=== PATIENT | female | born 1950 | race Caucasian/White ===

== ENCOUNTER 2017-01-13 02:11 | Emergency (ER) | payer BC, MEDICARE ==
[2017-01-13 02:11] VITALS: BMI 35.5
--- NOTE | 2017-01-13 02:46 | C.PDOC ---
History Of Present Illness Patient is a 66 year old female who presents to the ER with a complaint of a lump on the left side of her neck that began to form 5 days ago. Denies any fever, pain, or vomiting. Chief Complaint (Nursing): Abnormal Skin Integrity History Per: Patient History/Exam Limitations: no limitations Onset/Duration Of Symptoms: Days (5) Current Symptoms Are (Timing): Still Present Location Of Injury: Left: Neck (mass) Quality Of Symptoms: denies: Painful, Itching Past Medical History Reviewed: Historical Data, Nursing Documentation, Vital Signs Vital Signs: Last Vital Signs Temp 98.4 F 01/13/17 05:40 Pulse 81 01/13/17 05:40 Resp 18 01/13/17 05:40 BP 145/86 01/13/17 05:40 Pulse Ox 96 01/13/17 17:16 - Medical History PMH: Colonic Polyps, HTN, Hypercholesterolemia Family History: States: Unknown Family Hx - Social History Hx Alcohol Use: No Hx Substance Use: No - Immunization History Hx Tetanus Toxoid Vaccination: Yes Hx Influenza Vaccination: Yes Hx Pneumococcal Vaccination: No Review Of Systems Except As Marked, All Systems Reviewed And Found Negative. Constitutional: Negative for: Fever, Chills ENT: Positive for: Other (Mass on left side of neck) Cardiovascular: Negative for: Palpitations Respiratory: Negative for: Cough, Shortness of Breath Gastrointestinal: Negative for: Nausea, Vomiting, Diarrhea Physical Exam - Physical Exam Appears: Well, Non-toxic Skin: Normal Color, Warm, Dry Head: Atraumatic, Normacephalic Eye(s): bilateral: Normal Inspection Oral Mucosa: Moist Throat: Normal Neck: Normal, Normal ROM, Other (2x3 inch mass, non tender) Chest: Symmetrical Cardiovascular: Rhythm Regular Respiratory: Normal Breath Sounds, No Rales, No Rhonchi, No Wheezing Gastrointestinal/Abdominal: Soft, No Tenderness Neurological/Psych: Oriented x3, Normal Speech, Normal Cognition ED Course And Treatment - Laboratory Results Result Diagrams: 01/13/17 03:20 01/13/17 03:20 O2 Sat by Pulse Oximetry: 96 (Room air) Pulse Ox Interpretation: Normal Progress Note: Neck soft tissue CT without contrast, blood work, and chest x- ray ordered. Disposition Counseled Patient/Family Regarding: Diagnosis - Disposition Referrals: Fabio Roberts MD [Staff Provider] - Disposition: HOME/ ROUTINE Disposition Time: 05:31 Condition: STABLE - POA Present On Arrival: None - Clinical Impression Clinical Impression: Parotid mass - Scribe Statement The provider has reviewed the documentation as recorded by the Scribe Devin Hicks All medical record entries made by the Noeibe were at my direction and personally dictated by me. I have reviewed the chart and agree that the record accurately reflects my personal performance of the history, physical exam, medical decision making, and the department course for this patient. I have also personally directed, reviewed, and agree with the discharge instructions and disposition.
[2017-01-13 03:24] LABS: BASO # 0.1 K/uL (0.0-0.2); EOS # 0.5 K/uL (0.0-0.7); EOS % 3.8 % (0.0-4.0); HEMATOCRIT 39.4 % (34.0-47.0); LYMPH # 3.1 K/uL (1.0-4.3); LYMPH % 23.2 % (20.0-40.0); MEAN CELL VOLUME 88.5 fL (81.0-99.0); MEAN CORPUSCULAR HEMOGLOBIN 28.5 pg (27.0-31.0); MEAN CORPUSCULAR HGB CONC 32.3 g/dL (33.0-37.0); MEAN PLATELET VOLUME 7.4 fL (7.2-11.7); MONO # 0.5 K/uL (0.0-0.8); MONO % 4.1 % (0.0-10.0); RED CELL DISTRIBUTION WIDTH 14.1 % (11.5-14.5); WHITE BLOOD COUNT 13.3 K/uL (4.8-10.8)
[2017-01-13 03:39] LABS: CHLORIDE 107 mmol/L (98-107); POTASSIUM 3.6 mmol/L (3.6-5.2); SODIUM 141 mmol/L (132-148)
[2017-01-13 03:41] LABS: BILIRUBIN,TOTAL 0.4 mg/dL (0.2-1.3); GFR AFRICAN-AMERICAN > 60
[2017-01-13 03:42] LABS: ALKALINE PHOSPHATASE 130 U/L (38-126); ALT/SGPT 41 U/L (9-52); AST/SGOT 26 U/L (14-36); BLOOD UREA NITROGEN 18 mg/dL (7-17); CARBON DIOXIDE 19 mmol/L (22-30); GLUCOSE,RANDOM 120 mg/dL (65-105); TOTAL PROTEIN 7.8 g/dL (6.3-8.3)
[2017-01-13 03:43] LABS: CALCIUM 8.8 mg/dl (8.6-10.4)
[2017-01-13] MEDS ORDERED: Iodixanol 320 MG/ML 100 ML BOTTLE IV ONE (04:02)
--- NOTE | 2017-01-13 05:15 | CT ---
EXAM: CT Neck Without and With Intravenous Contrast CLINICAL HISTORY: 66 years old, female; Signs and symptoms; Mass, lump, or swelling in neck; Additional info: Mass-left side of neck TECHNIQUE: Axial computed tomography images of the neck without and with intravenous contrast. This CT exam was performed using one or more of the following dose reduction techniques: automated exposure control, adjustment of the mA and/or kV according to patient size, and/or use of iterative reconstruction technique. Coronal and sagittal reformatted images were created and reviewed. CONTRAST: 100 mL of [id number] administered intravenously. EXAM DATE/TIME: Exam ordered 01/13/2017 2:43 AM COMPARISON: No relevant prior studies available. FINDINGS:No previous imaging is available. 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 Nasopharynx: Unremarkable. Oropharynx: Unremarkable. Calcifications in a prominent left palatine tonsil se2 im30 Hypopharynx: Unremarkable. Larynx: Unremarkable. Normal epiglottis. Trachea: Included portions of the lungs with severe extensive abnormalities, right more severe than left, and noting emphysematous change, probable fibrotic changes and honeycombing, further noting series 4 image 77 suggestion of soft tissue nodularity of the trachea versus secretions. Retropharyngeal space: Unremarkable. Submandibular/parotid glands: In the vicinity of the left parotid gland, there is a high attenuation finding which could represent a biopsy clip or could be related to calcification. There is a multiloculated low attenuation finding in the left parotid gland seen for example series 4 image 31, this measures approximately 5 cm cephalocaudal by 6 cm transversely by 2.7 cm anteroposterior width at least 3 major locules. Noted that the inferior extent is adjacent to the left jugular veins and carotid arteries and close attention should be paid during biopsy or other procedure. Thyroid: Unremarkable. No enlarged or calcified nodules. Bones/joints: Bony structures are without fractures. Soft tissues: Unremarkable. Vasculature: Atherosclerotic calcifications, noting that the great vessels of the arch appear patent in their visualized portions, this study is not designed as angiogram. There is some limitation to evaluation of the left vertebral artery which is favored to originate directly off the aortic arch. Lymph nodes: In the right parotid series 4 image 34 there is an approximately 11mm short axis node, with multiple additional prominent nodes associated with the right parotid. There are additional multiple small nodes associated with the bilateral parotids. Lung apices: Included portions of the lungs with severe extensive abnormalities, right more severe than left, and noting emphysematous change, probable fibrotic changes and honeycombing, further noting series 4 image 77 suggestion of soft tissue nodularity of the trachea versus secretions. IMPRESSION: 1. 6 cm x 5 cm by approximately 3 cm loculated finding associated with the left parotid gland, with previous imaging not available at this time and size is not given in the previous report, comparison to previous and correlation with interim evaluation is recommended. Multiple other bilateral lymph nodes. Comparison to the previous imaging on site and correlation with biopsy results is strongly recommended. Evaluation of the lungs is recommended, noting extensive chronic appearing changes at the bilateral lung apices, with superimposed acute infection or possibility of some interstitial spread of tumor also to be considered. Nodularity to the wall of the trachea which could represent secretions but cannot exclude tracheal nodules. Prominent left palatine tonsil with at least 2 coarse calcifications.
[2017-01-13 05:41] VITALS: BP 145/86; PULSE 81; RESP 18; TEMP 98.4
--- NOTE | 2017-01-13 08:53 | RAD ---
HISTORY: presence of cervical mass COMPARISON: No prior. TECHNIQUE: Chest PA and lateral FINDINGS: LUNGS: Diffuse increased interstitial lung markings. Mild right midlung atelectasis. Upper lobe granulomatous changes. Scattered nodularity throughout both lungs. PLEURA: No significant pleural effusion identified. No pneumothorax apparent. CARDIOVASCULAR: Normal. OSSEOUS STRUCTURES: Degenerative changes in the spine and shoulders. VISUALIZED UPPER ABDOMEN: Normal. OTHER FINDINGS: None. IMPRESSION: Diffuse increased interstitial lung markings. Mild right midlung atelectasis. Upper lobe granulomatous changes. Scattered nodularity throughout both lungs.
[2017-01-13 17:16] VITALS: O2SAT 96
== END 2017-01-13 05:46 | disposition home or self-care (01) ==
LOC: C.ER 02:11
DX: R22.1 Localized swelling, mass and lump, neck (principal)
CPT/HCPCS: 70492; 71020; 80053; 85025; 99284; Q9967

== ENCOUNTER 2017-01-17 21:50 | Emergency (ER) | payer BC, MEDICARE ==
[2017-01-17 21:50] VITALS: BMI 35.5
--- NOTE | 2017-01-17 23:06 | C.PDOC ---
History Of Present Illness 66 year old female presents to the ED for a wound check to her left neck. Patient states she was started on antibiotics by Dr. Gray 3 days ago and was recently seen in the ED for a wound check. Denies fever, chills, neck pain, or any new complaints. Time Seen by Provider: 01/17/17 22:53 Chief Complaint (Nursing): Abnormal Skin Integrity History Per: Patient History/Exam Limitations: no limitations Onset/Duration Of Symptoms: Days Current Symptoms Are (Timing): Still Present Severity: Mild Past Medical History Reviewed: Historical Data, Nursing Documentation, Vital Signs Vital Signs: Last Vital Signs Temp 98.2 F 01/17/17 23:14 Pulse 76 01/17/17 23:14 Resp 16 01/17/17 23:14 BP 154/93 H 01/17/17 23:14 Pulse Ox 98 01/17/17 23:14 - Medical History PMH: Colonic Polyps, HTN, Hypercholesterolemia Family History: States: Unknown Family Hx - Social History Hx Alcohol Use: No Hx Substance Use: No - Immunization History Hx Tetanus Toxoid Vaccination: Yes Hx Influenza Vaccination: Yes Hx Pneumococcal Vaccination: No Review Of Systems Except As Marked, All Systems Reviewed And Found Negative. Constitutional: Negative for: Fever, Chills Musculoskeletal: Negative for: Neck Pain Skin: Positive for: Other (+Wound check ) Physical Exam - Physical Exam Appears: Non-toxic, No Acute Distress Skin: Warm, Dry, Other (+2x2 cm wound to the left neck draining non-foul smelling serosanguinous fluid. No fluctuence or surrounding erythema.) Head: Atraumatic, Normacephalic Eye(s): bilateral: Normal Inspection Oral Mucosa: Moist Neck: Supple Chest: Symmetrical Respiratory: No Accessory Muscle Use Neurological/Psych: Oriented x3, Normal Speech, Normal Cognition ED Course And Treatment O2 Sat by Pulse Oximetry: 95 (room air) Pulse Ox Interpretation: Normal Medical Decision Making Medical Decision Making: non-foul smelling sero-sanguinous d/c from wound L neck on day 4 of PO KEflex 500 TID Recommended to bandage daily and continue abx to day 7 only. Disposition Doctor Will See Patient In The: Office Counseled Patient/Family Regarding: Studies Performed, Diagnosis - Disposition Referrals: Ino Gray [Staff Provider] - Disposition: HOME/ ROUTINE Disposition Time: 23:05 Condition: GOOD Additional Instructions: continue daily soap and water to clean Clean dry bandage daily Continue Keflex 500 mg PO TID to complete 7 days only. Follow-up with Dr. Gray as needed. Instructions: Chronic Wound Care (ED) - Clinical Impression Clinical Impression: Skin lesion, Wound check, abscess - Scribe Statement The provider has reviewed the documentation as recorded by the Scribe Tin Ho. Provider Attestation: All medical record entries made by the Scribe were at my direction and personally dictated by me. I have reviewed the chart and agree that the record accurately reflects my personal performance of the history, physical exam, medical decision making, and the department course for this patient. I have also personally directed, reviewed, and agree with the discharge instructions and disposition.
[2017-01-17 23:15] VITALS: BP 154/93; PULSE 76; RESP 16; TEMP 98.2
[2017-01-18 00:29] VITALS: O2SAT 95
== END 2017-01-17 23:14 | disposition home or self-care (01) ==
LOC: C.ER 21:50
DX: L02.11 Cutaneous abscess of neck (principal)

== ENCOUNTER 2017-02-20 09:47 | Day surgery (SDC) | payer MEDICARE ==
[2017-02-20 10:36] VITALS: O2SAT 100
--- NOTE | 2017-02-20 11:17 | CP.SDSHP ---
Same Day Surgery H & P - History Proposed Procedure: US guided FNA of left parotid mass Pre-Op Diagnosis: Left parotid mass - Allergies Allergies: Allergies No Known Allergies Allergy (Verified 02/13/16 08:57) - Physical Exam Vital Signs: Vital Signs 02/20/17 10:19 Temperature 97.2 F L Pulse Rate 66 Respiratory 20 Rate Blood Pressure 159/86 H O2 Sat by Pulse 100 Oximetry Mental Status: Alert & Oriented x3 Neuro: WNL Heart: WNL - {Optional Preform as Required} ENT: WNL - Impression Impression: Pt s/p left parotid cystic mass resection with complex fluid collection near surgical bed. PLAN US guided aspiration. Pt. Evaluated Today:Candidate for Anesthesia & Procedure: No Short Stay Discharge - Short Stay Discharge Admitting Diagnosis/Reason for Visit: PAROTID MASS Disposition: HOME/ ROUTINE
--- NOTE | 2017-02-20 11:20 | PCM.SURG1 ---
Surgeon's Initial Post Op Note - Surgeon's Notes Surgeon: Olu Larson MD Truck Guard: NONE Type of Anesthesia: Local Pre-Operative Diagnosis: Parotid mass Operative Findings: Large complex left parotid collection. Post-Operative Diagnosis: Parotid mass Operation Performed: US guided aspiration of left parotid collection. Specimen/Specimens Removed: 9 cc of purulent drainage. Estimated Blood Loss: EBL {In ML}: 0 Drains Used: No Drains Post-Op Condition: Good Date of Surgery/Procedure: 02/20/17 Time of Surgery/Procedure: 11:15
[2017-02-20 11:43] VITALS: BP 117/53; PULSE 76; RESP 18; TEMP 97
--- NOTE | 2017-02-20 14:04 | US ---
PROCEDURE: DATE OF PROCEDURE: 02/20/2017 PROCEDURE: 1. Ultrasound-guided FNA of a left parotid mass, CPT 22455 2. Ultrasound guidance for procedure, CPT 94957 Medications: 3cc 1 percent lidocaine HISTORY: Status post left parotid cyst resection with complex fluid collection deep to the surgical scar TECHNIQUE: Following informed consent, the left parotid area was marked. Procedure time out was called and the parotid area was prepped and draped in the usual sterile manner. A limited ultrasound was performed of the left parotid which shows a complex cystic mass deep to the surgical incision measuring 6 centimeters. Ultrasound-guided FNA was performed. Under ultrasound guidance, a 25 gauge needle was advanced into the nodule. 9 cubic centimeters of purulent drainage was aspirated and sent for histology along with culture and sensitivity. IMPRESSION: Ultrasound-guided aspiration of cystic mass left parotid space. 9 cubic centimeters of purulent drainage was aspirated.
== END 2017-02-20 11:51 | disposition home or self-care (01) ==
LOC: C.SPRAD 09:47
PROVIDERS: ATTEND Radiology Vascular & Interventional Radiology
DX: K11.8 Other diseases of salivary glands (principal)

== ENCOUNTER 2018-02-01 23:53 | Observation (INO) | payer MEDICARE ==
[2018-02-01 23:53] VITALS: BMI 35.5
[2018-02-02 00:52] LABS: BASO # 0.1 K/uL (0.0-0.2); BASO % 0.8 % (0.0-2.0); EOS # 0.6 K/uL (0.0-0.7); EOS % 4.2 % (0.0-4.0); HEMOGLOBIN 12.4 g/dL (11.0-16.0); LYMPH % 29.2 % (20.0-40.0); MEAN CELL VOLUME 86.5 fL (81.0-99.0); MEAN CORPUSCULAR HEMOGLOBIN 29.4 pg (27.0-31.0); MEAN PLATELET VOLUME 7.5 fL (7.2-11.7); MONO # 0.8 K/uL (0.0-0.8); MONO % 6.1 % (0.0-10.0); NEUT # 8.2 K/uL (1.8-7.0); NEUT % 59.7 % (50.0-75.0); RBC 4.23 Mil/uL (3.80-5.20); WHITE BLOOD COUNT 13.6 K/uL (4.8-10.8)
--- NOTE | 2018-02-02 00:53 | C.PDOC ---
History Of Present Illness 67yo female with history of hypertension, diabetes, hyperlipidemia, current smoker, presents to ED for evaluation of a sudden onset sub-sternal chest pain, pressure like and radiating to her neck, jaw and down her left arm. 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 She denies any pleuritic pain and states she has no history of CAD; last stress test was 6 years ago. Time Seen by Provider: 02/02/18 00:20 Chief Complaint (Nursing): Chest Pain History Per: Patient History/Exam Limitations: no limitations Onset/Duration Of Symptoms: Hrs Current Symptoms Are (Timing): Still Present Severity: Moderate Pain Scale Rating Of: 4 Quality: Pressure Past Medical History Reviewed: Historical Data, Nursing Documentation, Vital Signs Vital Signs: Last Vital Signs Temp 98.4 F 02/02/18 02:10 Pulse 96 H 02/02/18 03:15 Resp 20 02/02/18 02:10 BP 144/81 02/02/18 02:10 Pulse Ox 97 02/02/18 02:48 - Medical History PMH: Colonic Polyps, HTN, Hypercholesterolemia Denies: Chronic Kidney Disease Surgical History: No Surg Hx Family History: States: Unknown Family Hx - Social History Hx Alcohol Use: No Hx Substance Use: No - Immunization History Hx Tetanus Toxoid Vaccination: No Hx Influenza Vaccination: Yes Hx Pneumococcal Vaccination: Yes Review Of Systems Except As Marked, All Systems Reviewed And Found Negative. Constitutional: Negative for: Fever, Chills Cardiovascular: Positive for: Chest Pain Respiratory: Negative for: Shortness of Breath Physical Exam - Physical Exam Appears: Non-toxic Skin: Normal Color, Warm, Dry Head: Atraumatic, Normacephalic Eye(s): bilateral: Normal Inspection Neck: Normal ROM, Supple Chest: Symmetrical Cardiovascular: Rhythm Regular (normal S1/S2) Respiratory: Normal Breath Sounds, No Wheezing Gastrointestinal/Abdominal: Normal Exam Back: Normal Inspection Extremity: Normal ROM, No Deformity, No Swelling Neurological/Psych: Oriented x3 ED Course And Treatment - Laboratory Results Result Diagrams: 02/02/18 00:40 02/02/18 00:40 ECG: Interpreted By Me, Viewed By Me ECG Rhythm: Sinus Rhythm ECG Interpretation: Normal Interpretation Of ECG: Normal intervals, no ST/T wave changes, no ectopy Rate From EC O2 Sat by Pulse Oximetry: 99 (RA) Pulse Ox Interpretation: Normal Medical Decision Making Medical Decision Making: Impression: Typical chest pain with multiple risk factors Routine workup requiring admission Plan: -- Labs -- EKG -- CXR -- ASA 162mg PO -- NTG 0.4mg SL -- Urinalysis Disposition - Disposition Disposition: HOSPITALIZED Disposition Time: 04:00 Condition: GOOD - Clinical Impression Clinical Impression: Chest pain - Scribe Statement The provider has reviewed the documentation as recorded by the Scribe (Alpa Smith) Provider Attestation: All medical record entries made by the Scribe were at my direction and personally dictated by me. I have reviewed the chart and agree that the record accurately reflects my personal performance of the history, physical exam, medical decision making, and the department course for this patient. I have also personally directed, reviewed, and agree with the discharge instructions and disposition.
--- NOTE | 2018-02-02 00:56 | C.PDOC ---
Chief Complaint (Nursing): Chest Pain Past Medical History Vital Signs: Last Vital Signs Temp 97.9 F 02/02/18 00:10 Pulse 89 02/02/18 00:49 Resp 19 02/02/18 00:49 BP 134/76 02/02/18 00:49 Pulse Ox 95 02/02/18 00:49 - Medical History PMH: Colonic Polyps, HTN, Hypercholesterolemia Denies: Chronic Kidney Disease Family History: States: Unknown Family Hx - Social History Hx Alcohol Use: No Hx Substance Use: No - Immunization History Hx Tetanus Toxoid Vaccination: No Hx Influenza Vaccination: Yes Hx Pneumococcal Vaccination: Yes ED Course And Treatment - Laboratory Results Result Diagrams: 02/02/18 00:40 O2 Sat by Pulse Oximetry: 95 Disposition - Disposition
[2018-02-02 01:00] LABS: ALBUMIN 3.7 g/dL (3.5-5.0); ALT/SGPT 13 U/L (9-52); AST/SGOT 20 U/L (14-36); BLOOD UREA NITROGEN 22 mg/dL (7-17); CALCIUM 8.6 mg/dl (8.6-10.4); GFR AFRICAN-AMERICAN > 60; GFR NON-AFRICAN AMERICAN > 60
[2018-02-02 01:13] LABS: B-TYPE NATRIURETIC PEPTIDE 52.7 pg/mL (0-900)
--- NOTE | 2018-02-02 02:07 | CP.PCM.HP ---
<ShayanParesh parmar - Last Filed: 02/02/18 03:36> History of Present Illness - History of Present Illness History of Present Illness: CC: Chest pain x6 hours PMD: Dr. Gray Advanced Directive: Full Code This patient is a 67yo F w/ a PMhx of DM on glipizide, HTN, and HLD who is coming to the ED with chest pain since 10pm tonight. The patient was sitting watching TV when the chest pain started; She states the chest pain is centrally located, moving to both jaws and down her left arm associated with nausea and diaphoresis. Denies any vomiting or feelings of impending doom. She has never had chest pain like this before which is what prompted her to come into the hospital. She denies shortness of breath. She states she had a stress test 6 yeas ago which was normal, and saw a parquet floor layer's helper "many years ago" with reportedly normal results. She currently denies chest pain, after she was given nitro twice which alleviated her pain. She denies fevers/chills, SWANSON, CP, SOB, abdominal pain, N/V/D, dysuria/freq/urg or lower extremity pain/swelling PMhx: HTN, HLD, DM type 2 Meds: Glipizide (unknown dose), Simvastatin 20mg, Valsartan/HCTz combo, baby aspirin Allergies: denies Surgeries: partoid gland cyst removal Social: current smoker, states she is trying to quit and is down to 4 cigarettes a day, denies EtOH or other illicit drug use, independent in all ADL and IADL. Present on Admission - Present on Admission Any Indicators Present on Admission: Yes History of DVT/PE: No History of Uncontrolled Diabetes: Yes Urinary Catheter: No Decubitus Ulcer Present: No Past Patient History - Past Medical History & Family History Past Medical History?: Yes - Past Social History Smoking Status: Light Smoker < 10 Cigarettes Daily - CARDIAC Hx Hypercholesterolemia: Yes Hx Hypertension: Yes - PULMONARY Hx Respiratory Disorders: No - NEUROLOGICAL Hx Neurological Disorder: No - HEENT Hx HEENT Problems: Yes Other/Comment: HX: PAROTID MASS - RENAL Hx Chronic Kidney Disease: No - ENDOCRINE/METABOLIC Hx Endocrine Disorders: No - HEMATOLOGICAL/ONCOLOGICAL Hx Blood Disorders: No - INTEGUMENTARY Hx Dermatological Problems: No - MUSCULOSKELETAL/RHEUMATOLOGICAL Hx Musculoskeletal Disorders: No - GASTROINTESTINAL Hx Gastrointestinal Disorders: Yes - GENITOURINARY/GYNECOLOGICAL Hx Genitourinary Disorders: No - PSYCHIATRIC Hx Substance Use: No - SURGICAL HISTORY Hx Surgeries: Yes Hx Hysterectomy: Yes Hx Tubal Ligation: Yes Other/Comment: 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 Negative for: Lymphadenopathy, Thyromegaly - Respiratory Exam Respiratory Exam: Clear to Auscultation Bilateral, NORMAL BREATHING PATTERN. absent: Rales, Rhonchi, Wheezes - Cardiovascular Exam Cardiovascular Exam: REGULAR RHYTHM, +S1, +S2. absent: Clicks, Diastolic murmur , Gallop, Systolic Murmur - GI/Abdominal Exam GI & Abdominal Exam: Normal Bowel Sounds, Soft. absent: Tenderness - Extremities Exam Extremities exam: Positive for: full ROM. Negative for: calf tenderness, pedal edema - Back Exam Back exam: NORMAL INSPECTION. absent: CVA tenderness (L), CVA tenderness (R) - Neurological Exam Neurological exam: Alert, CN II-XII Intact, Oriented x3 - Psychiatric Exam Psychiatric exam: Normal Affect - Skin Skin Exam: Warm Results - Vital Signs Recent Vital Signs: Last Vital Signs Temp 97.9 F 02/02/18 00:10 Pulse 89 02/02/18 01:53 Resp 17 02/02/18 01:53 BP 143/77 02/02/18 01:53 Pulse Ox 96 02/02/18 01:53 - Labs Result Diagrams: 02/02/18 00:40 02/02/18 00:40 Labs: Laboratory Results - last 24 hr 02/02/18 02/02/18 02/02/18 00:08 00:40 00:40 WBC 13.6 H RBC 4.23 Hgb 12.4 Hct 36.6 MCV 86.5 D MCH 29.4 MCHC 34.0 RDW 14.0 Plt Count 335 MPV 7.5 Neut % (Auto) 59.7 Lymph % (Auto) 29.2 Emmet % (Auto) 6.1 Eos % (Auto) 4.2 H Baso % (Auto) 0.8 Neut # (Auto) 8.2 H Lymph # (Auto) 4.0 Emmet # (Auto) 0.8 Eos # (Auto) 0.6 Baso # (Auto) 0.1 Sodium 141 Potassium 3.6 Chloride 105 Carbon Dioxide 25 Anion Gap 15 BUN 22 H Creatinine 0.7 Est GFR ( Amer) > 60 Est GFR (Non-Af Amer) > 60 POC Glucose (mg/dL) 148 H Random Glucose 145 H Calcium 8.6 Total Bilirubin 0.3 AST 20 ALT 13 Alkaline Phosphatase 124 Troponin I < 0.0120 NT-Pro-B Natriuret Pep 52.7 Total Protein 7.5 Albumin 3.7 Globulin 3.7 Albumin/Globulin Ratio 1.0 Assessment & Plan - Assessment and Plan (Free Text) Assessment: 67yo F admitted for chest pain with multiple risk factors (HTN, DM, HLD) Chest Pain -initial FRANKI negative, EKG was NSR with nonspecific ST/T wave changes -f/u repeat EKG w/ FRANKI -Chest X-ray shows emphasatamous changes; low dose chest CT from last year shows similar findings -aspirin 81mg daily, c/w home HTN meds (arb/hctz) -f/u echo; BNP normal at 52.7 -telemetry -cardiology consult; Dr. Jalloh; appreciate recs -NPO except for meds Leukocytosis -will f/u morning CBC -patient is afebrile with normal vital signs DM -f/u hba1c -will hold all diabetes medicine as per Dr. Clark HLD -f/u lipid panel -will change to crestor 20mg HTN -c/w home meds ARB/HCtz -will hold beta wilson as per Dr. Clark Proph -Lovenox 40mg SC -GI prophylaxis not indicated Case discussed and seen with Dr. Clark Decision To Admit - Pt Status Changed To: Hospital Disposition Of: Observation - . Bed Request Type: Telemetry Admitting Physician: Abisai Clark <Abisai Clark - Last Filed: 02/02/18 07:34> Results - Vital Signs Recent Vital Signs: Last Vital Signs Temp 98.4 F 02/02/18 02:10 Pulse 96 H 02/02/18 03:15 Resp 20 02/02/18 02:10 BP 144/81 02/02/18 02:10 Pulse Ox 99 02/02/18 04:01 - Labs Result Diagrams: 02/02/18 00:40 02/02/18 00:40 Labs: Laboratory Results - last 24 hr 02/02/18 02/02/18 02/02/18 00:08 00:40 00:40 WBC 13.6 H RBC 4.23 Hgb 12.4 Hct 36.6 MCV 86.5 D MCH 29.4 MCHC 34.0 RDW 14.0 Plt Count 335 MPV 7.5 Neut % (Auto) 59.7 Lymph % (Auto) 29.2 Emmet % (Auto) 6.1 Eos % (Auto) 4.2 H Baso % (Auto) 0.8 Neut # (Auto) 8.2 H Lymph # (Auto) 4.0 Emmet # (Auto) 0.8 Eos # (Auto) 0.6 Baso # (Auto) 0.1 Sodium 141 Potassium 3.6 Chloride 105 Carbon Dioxide 25 Anion Gap 15 BUN 22 H Creatinine 0.7 Est GFR ( Amer) > 60 Est GFR (Non-Af Amer) > 60 POC Glucose (mg/dL) 148 H Random Glucose 145 H Calcium 8.6 Total Bilirubin 0.3 AST 20 ALT 13 Alkaline Phosphatase 124 Total Creatine Kinase CK-MB (Mass) Troponin I < 0.0120 NT-Pro-B Natriuret Pep 52.7 Total Protein 7.5 Albumin 3.7 Globulin 3.7 Albumin/Globulin Ratio 1.0 Triglycerides Cholesterol LDL Cholesterol Direct HDL Cholesterol TSH 3rd Generation Urine Color Urine Clarity Urine pH Ur Specific Oaks Urine Protein Urine Glucose (UA) Urine Ketones Urine Blood Urine Nitrate Urine Bilirubin Urine Urobilinogen Ur Leukocyte Esterase Urine WBC (Auto) Urine RBC (Auto) Ur Squamous Epith Cells 02/02/18 02/02/18 02/02/18 03:54 04:37 06:36 WBC RBC Hgb Hct MCV MCH MCHC RDW Plt Count MPV Neut % (Auto) Lymph % (Auto) Emmet % (Auto) Eos % (Auto) Baso % (Auto) Neut # (Auto) Lymph # (Auto) Emmet # (Auto) Eos # (Auto) Baso # (Auto) Sodium Potassium Chloride Carbon Dioxide Anion Gap BUN Creatinine Est GFR ( Amer) Est GFR (Non-Af Amer) POC Glucose (mg/dL) 115 H Random Glucose Calcium Total Bilirubin AST ALT Alkaline Phosphatase Total Creatine Kinase 73 CK-MB (Mass) 0.55 Troponin I 0.0670 NT-Pro-B Natriuret Pep Total Protein Albumin Globulin Albumin/Globulin Ratio Triglycerides 317 H Cholesterol 175 LDL Cholesterol Direct 113 HDL Cholesterol 42 TSH 3rd Generation 0.85 Urine Color Yellow Urine Clarity Clear Urine pH 5.0 Ur Specific Oaks 1.024 Urine Protein Negative Urine Glucose (UA) Normal Urine Ketones Negative Urine Blood Negative Urine Nitrate Negative Urine Bilirubin Negative Urine Urobilinogen Normal Ur Leukocyte Esterase Neg Urine WBC (Auto) 2 Urine RBC (Auto) 5 H Ur Squamous Epith Cells 3 Attending/Attestation - Attestation I have personally seen and examined this patient.: Yes I have fully participated in the care of the patient.: Yes I have reviewed all pertinent clinical information: Yes Notes (Text): 02/02/18 07:30 Symptoms of CP, left arm discomfort, at rest while watching tv resolved, by the time patient reached hospital en route received also nitro and asa x2, with normal no acute signs of ischemia in the EKG. Patient has h/o dm, htn, tobacco abuse. Plan Serial troponin in hosptial Carb consistent diet Counselled about tobacco cessation.
[2018-02-02 04:08] LABS: SQUAMOUS EPITHIAL 3 /hpf (0-5); URINE BILIRUBIN NEGATIVE (NEGATIVE); URINE BLOOD NEGATIVE (NEGATIVE); URINE CLARITY Clear (Clear); URINE COLOR Yellow (YELLOW); URINE GLUCOSE (UA) NORMAL (Normal); URINE LEUKOCYTE ESTERASE NEG Leu/uL (Negative); URINE PROTEIN NEGATIVE (NEGATIVE); URINE UROBILINOGEN NORMAL mg/dL (0.2-1.0)
[2018-02-02 05:01] LABS: CK-MB 0.55 ng/mL (0.0-3.38); TROPONIN I 0.067 ng/mL (0.00-0.120)
[2018-02-02] MEDS ORDERED: Aluminum Hydroxide/Magnesium Hydroxide Susp (30 mL) PO ONE (05:09)
[2018-02-02] MEDS ORDERED: (Novolog) Insulin Aspart, Recombinant 100 u/ml 10 ml vial SC SCH (07:30)
--- NOTE | 2018-02-02 07:57 | RAD ---
Chest x-ray single frontal view History: Chest pain. Comparison: 01/13/2017 Findings: Diffuse increased interstitial lung markings which may represent superimposed acute edema and or infiltrate on chronic fibrotic changes. Clinical correlation. Biapical pleural thickening with upper lobe granulomatous changes. Elevated right hemidiaphragm. Right hilar prominence. Degenerative changes in the spine and shoulders. Impression: Diffuse increased interstitial lung markings which may represent superimposed acute edema and or infiltrate on chronic fibrotic changes. Clinical correlation. Biapical pleural thickening with upper lobe granulomatous changes. Elevated right hemidiaphragm. Right hilar prominence.
[2018-02-02] MEDS ORDERED: HYDROCHLOROTHIAZIDE PO SCH (10:00)
[2018-02-02] MEDS ORDERED: VALSARTAN PO SCH (10:00)
[2018-02-02] MEDS: Enoxaparin 40 mg Syringe SC SCH (10:01)
[2018-02-02] MEDS: (Novolin R) Insulin Human Regular 100 units/ml vial SC SCH ×3 (12:00→22:16)
--- NOTE | 2018-02-02 15:07 | CP.PCM.PN ---
Subjective - Date & Time of Evaluation Date of Evaluation: 02/02/18 Time of Evaluation: 07:00 - Subjective Subjective: PGY1- Medicine Note Patient seen and examined at bedside and in no acute distress. Patient says her chest pain has completely resolved and she is eager to go home. Patient has some epigastric pain which she said started around 4 am and she rated 9/10, but has subsided to 2/10. Patient has not had a bowel movement since Friday. Patient denies any shortness of breath, nausea, or vomiting. Objective - Vital Signs/Intake and Output Vital Signs (last 24 hours): Temp Pulse Resp BP Pulse Ox 98.2 F 72 18 163/94 H 96 02/02/18 07:20 02/02/18 12:00 02/02/18 07:20 02/02/18 07:20 02/02/18 07:20 Intake and Output: 02/02/18 02/02/18 06:59 18:59 Intake Total 240 Balance 240 - Medications Medications: Current Medications Aspirin (Ecotrin) 81 mg PO [facility]ILY [facility] Last Admin: 02/02/18 10:02 Dose: 81 mg Enoxaparin Sodium (Lovenox) 40 mg SC [facility] Last Admin: 02/02/18 10:01 Dose: 40 mg Home Med (Valsartan/Hydrochlorothiazide [Valsartan-Hctz 160-25 Mg Tab]) 1 tab PO DAILY [facility] Last Admin: 02/02/18 10:05 Dose: Not Given Insulin Human Regular (Novolin R) 0 unit SC [facility] PRN Reason: Protocol Last Admin: 02/02/18 12:00 Dose: Not Given Rosuvastatin Calcium (Crestor) 20 mg PO [facility] - Labs Labs: 02/02/18 00:40 02/02/18 00:40 - Constitutional Appears: Non-toxic, No Acute Distress - Head Exam Head Exam: ATRAUMATIC, NORMAL INSPECTION, NORMOCEPHALIC - Eye Exam Eye Exam: EOMI, Normal appearance Pupil Exam: NORMAL ACCOMODATION, PERRL - ENT Exam ENT Exam: Mucous Membranes Moist - Respiratory Exam Respiratory Exam: Clear to Ausculation Bilateral, NORMAL BREATHING PATTERN - Cardiovascular Exam Cardiovascular Exam: REGULAR RHYTHM, RRR, +S1, +S2 - GI/Abdominal Exam GI & Abdominal Exam: Soft, Normal Bowel Sounds. absent: Tenderness - Extremities Exam Extremities Exam: Normal Inspection - Back Exam Back Exam: NORMAL INSPECTION - Neurological Exam Neurological Exam: Alert, Awake, Oriented x3 - Psychiatric Exam Psychiatric exam: Normal Affect, Normal Mood - Skin Skin Exam: Intact, Normal Color, Warm Assessment and Plan - Assessment and Plan (Free Text) Assessment: Chest Pain -initial FRANKI negative, EKG was NSR with nonspecific ST/T wave changes -repeat Troponin I .0670 -Chest X-ray shows emphasatamous changes; low dose chest CT from last year shows similar findings -aspirin 81mg daily, c/w home HTN meds (arb/hctz) -f/u echo; BNP normal at 52.7 -telemetry -cardiology consult; Dr. Jalloh; appreciate recs -NPO except for meds after midnight -patient to go for cardiac cath in am with Dr. Jalloh Leukocytosis -will f/u morning CBC -patient is afebrile with normal vital signs Constipation -Colace 100mg po TID -prune juice -monitor for BM DM -hba1c- 6.6 -insulin sliding scale - low -accuchecks q6h -hypoglycemia protocol HLD -lipid panel: Triglycerides 317, Cholesterol 175, LDL 113, HDL 42 -will change to crestor 20mg HTN -c/w home meds ARB/HCtz -will hold beta wilson as per Dr. Clark Proph -Lovenox 40mg SC -GI prophylaxis not indicated
[2018-02-02 16:50] LABS: INR 1.1
[2018-02-02 17:04] LABS: CK-MB 0.81 ng/mL (0.0-3.38); TROPONIN I 0.045 ng/mL (0.00-0.120)
--- NOTE | 2018-02-02 18:05 | CARD ---
APPROVED REPORT EXAM: Two-dimensional and M-mode echocardiogram with Doppler and color Doppler. Other Information Quality : AverageRhythm : NSR INDICATION Chest Pain M-Mode DIMENSIONS RVDd1.53 (2.1-3.2cm)Left Atrium (MM)3.58 (2.5-4.0cm) IVSd1.07 (0.7-1.1cm)Aortic Root2.73 (2.2-3.7cm) LVDd5.01 (4.0-5.6cm)Aortic Cusp Exc.1.79 (1.5-2.0cm) PWd1.14 (0.7-1.1cm)FS (%) 38 % LVDs3.12 (2.0-3.8cm)LVEF (%)67 (>50%) Aortic Valve AoV Peak Kvulpksw465.8cm/Alayna Peak GR.7mmHg Mitral Valve MV E Isosyzkt18.6cm/sMV A Kixmnnil443.8cm/sE/A ratio0.5 TDI E/Lateral E'0.0E/Medial E'0.0 Tricuspid Valve TR Peak [id number]/sTR Peak Gr.[id number] LEFT VENTRICLE There is normal left ventricular wall thickness. The left ventricular function is normal. The left ventricular ejection fraction is within the normal range. There is normal LV segmental wall motion. Transmitral Doppler flow pattern is abnormal. RIGHT VENTRICLE The right ventricle is normal size. ATRIA The left atrium size is normal. The right atrium size is normal. AORTIC VALVE The aortic valve is normal in structure. MITRAL VALVE Mitral regurgitation is trace. TRICUSPID VALVE There is trace to mild tricuspid regurgitation. <Conclusion> Normal LV systolic function. Diastolic dysfunction. Normal chambe rsize. Trace MR. Mild TR.
--- NOTE | 2018-02-03 00:07 | CP.PCM.CON ---
History of Present Illness - History of Present Illness History of Present Illness: Reason for consultation: accelerating angina HPI: This patient is a 67yo F w/ a PMhx of DM on glipizide, HTN, and HLD who is coming to the ED with chest pain since 10pm tonight. The patient was sitting watching TV when the chest pain started; She states the chest pain is centrally located, moving to both jaws and down her left arm associated with nausea and diaphoresis. Denies any vomiting or feelings of impending doom. She has never had chest pain like this before which is what prompted her to come into the hospital. She denies shortness of breath. She states she had a stress test 6 yeas ago which was normal, and saw a optical engineer "many years ago" with reportedly normal results. She currently denies chest pain, after she was given nitro twice which alleviated her pain. She denies fevers/chills, SWANSON, CP, SOB, abdominal pain, N/V/D, dysuria/freq/urg or lower extremity pain/swelling. Trops positive x 2 EKG - NSR Review of Systems - Constitutional Constitutional: absent: As Per HPI, Anorexia, Chills, Daytime Sleepiness, Excessive Sweating, Fatigue, Fever, Frequent Falls, Headache, Increased Appetite , Lethargy, Malaise, Night Sweats, Snoring, Sleep Apnea, Weight Gain, Weight Loss, Weakness, Other - EENT Eyes: absent: As Per HPI, Blind Spots, Blurred Vision, Change in Vision, Decreased Night Vision, Diplopia, Discharge, Dry Eye, Exophthalmos, Floaters, Irritation, Itchy Eyes, Loss of Peripheral Vision, Pain, Photophobia, Requires Corrective Lenses, Sees Flashes, Spots in Vision, Tunnel Vision, Other Visual Disturbances, Loss of Vision, Other Ears: absent: As Per HPI, Decreased Hearing, Ear Discharge, Ear Pain, Tinnitus, Abnormal Hearing, Disequilibrium, Dizziness, Other Nose/Mouth/Throat: absent: As Per HPI, Epistaxis, Nasal Congestion, Nasal Discharge, Nasal Obstruction, Nasal Trauma, Nose Pain, Post Nasal Drip, Sinus Pain, Sinus Pressure, Bleeding Gums, Change in Voice, Dental Pain, Dry Mouth, Dysphagia, Halitosis, Hoarsness, Lip Swelling, Mouth Lesions, Mouth Pain, Odynophagia, Sore Throat, Throat Swelling, Tongue Swelling, Facial Pain, Neck Pain, Neck Mass, Other - Cardiovascular Cardiovascular: Chest Pain at Rest. absent: Leg Edema, Pedal Edema - Respiratory Respiratory: Dyspnea on Exertion - Gastrointestinal Gastrointestinal: absent: As Per HPI, Abdominal Pain, Belching, Bloating, Change in Bowel Habits, Change in Stool Character, Coffee Ground Emesis, Constipation, Cramping, Diarrhea, Dyspepsia, Dysphagia, Early Satiety, Excessive Flatus, Fecal Incontinence, Heartburn, Hematemesis, Hematochezia, Loose Stools, Melena, Nausea, Odynophagia, Temesmus, Vomiting, Other - Genitourinary Genitourinary: absent: Hematuria, Pyuria - Musculoskeletal Musculoskeletal: Neck Pain. absent: Abnormal Gait, Muscle Weakness - Neurological Neurological: absent: Abnormal Gait, Dizziness, Focal Weakness, Frequent Falls, Headaches Past Patient History - Past Medical History & Family History Past Medical History?: Yes - Past Social History Smoking Status: Light Smoker < 10 Cigarettes Daily - CARDIAC Hx Hypercholesterolemia: Yes Hx Hypertension: Yes - PULMONARY Hx Respiratory Disorders: No - NEUROLOGICAL Hx Neurological Disorder: No - HEENT Hx HEENT Problems: Yes Other/Comment: HX: PAROTID MASS - RENAL Hx Chronic Kidney Disease: No - ENDOCRINE/METABOLIC Hx Endocrine Disorders: No - HEMATOLOGICAL/ONCOLOGICAL Hx Blood Disorders: No - INTEGUMENTARY Hx Dermatological Problems: No - MUSCULOSKELETAL/RHEUMATOLOGICAL Hx Musculoskeletal Disorders: No - GASTROINTESTINAL Hx Gastrointestinal Disorders: Yes - GENITOURINARY/GYNECOLOGICAL Hx Genitourinary Disorders: No - PSYCHIATRIC Hx Substance Use: No - SURGICAL HISTORY Hx Surgeries: Yes Hx Hysterectomy: Yes Hx Tubal Ligation: Yes Other/Comment: 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 - ANESTHESIA Hx Anesthesia: Yes Hx Anesthesia Reactions: No Hx Malignant Hyperthermia: No Meds Allergies/Adverse Reactions: Allergies Allergy/AdvReac Type Severity Reaction Status Date / Time No Known Allergies Allergy Verified 02/02/18 00:17 - Medications Medications: Current Medications Aspirin (Ecotrin) 81 mg PO DAILY [facility] Last Admin: 02/02/18 10:02 Dose: 81 mg Docusate Sodium (Colace) 100 mg PO TID [facility] Last Admin: 02/02/18 17:40 Dose: 100 mg Enoxaparin Sodium (Lovenox) 40 mg SC DAILY [facility] Last Admin: 02/02/18 10:01 Dose: 40 mg Hydrochlorothiazide (Hydrodiuril) 25 mg PO DAILY [facility] Insulin Human Regular (Novolin R) 0 unit SC ACHS [facility] PRN Reason: Protocol Last Admin: 02/02/18 22:16 Dose: Not Given Losartan Potassium (Cozaar) 100 mg PO DAILY [facility] Rosuvastatin Calcium (Crestor) 20 mg PO HS [facility] Last Admin: 02/02/18 21:37 Dose: 20 mg Physical Exam - Constitutional Appears: Non-toxic - Head Exam Head Exam: NORMAL INSPECTION - Eye Exam Eye Exam: Scleral icterus - ENT Exam ENT Exam: Mucous Membranes Moist - Neck Exam Neck exam: Positive for: Full Rom. Negative for: Lymphadenopathy - Respiratory Exam Respiratory Exam: Decreased Breath Sounds, NORMAL BREATHING PATTERN - Cardiovascular Exam Cardiovascular Exam: REGULAR RHYTHM - GI/Abdominal Exam GI & Abdominal Exam: Normal Bowel Sounds, Soft. absent: Tenderness - Extremities Exam Extremities exam: Negative for: calf tenderness, pedal edema - Neurological Exam Neurological exam: Alert, Oriented x3 Results - Vital Signs Recent Vital Signs: Last Vital Signs Temp 98 F 02/02/18 15:52 Pulse 75 02/02/18 16:00 Resp 20 02/02/18 15:52 BP 166/83 H 02/02/18 15:52 Pulse Ox 97 02/02/18 15:52 - Labs Result Diagrams: 02/02/18 00:40 02/02/18 00:40 Labs: Laboratory Results - last 24 hr 02/02/18 02/02/18 02/02/18 00:08 00:40 00:40 WBC 13.6 H RBC 4.23 Hgb 12.4 Hct 36.6 MCV 86.5 D MCH 29.4 MCHC 34.0 RDW 14.0 Plt Count 335 MPV 7.5 Neut % (Auto) 59.7 Lymph % (Auto) 29.2 [place] % (Auto) 6.1 Eos % (Auto) 4.2 H Baso % (Auto) 0.8 Neut # (Auto) 8.2 H Lymph # (Auto) 4.0 [place] # (Auto) 0.8 Eos # (Auto) 0.6 Baso # (Auto) 0.1 PT INR APTT Sodium 141 Potassium 3.6 Chloride 105 Carbon Dioxide 25 Anion Gap 15 BUN 22 H Creatinine 0.7 Est GFR ( Amer) > 60 Est GFR (Non-Af Amer) > 60 POC Glucose (mg/dL) 148 H Random Glucose 145 H Hemoglobin A1c Calcium 8.6 Total Bilirubin 0.3 AST 20 ALT 13 Alkaline Phosphatase 124 Total Creatine Kinase CK-MB (Mass) Troponin I < 0.0120 NT-Pro-B Natriuret Pep 52.7 Total Protein 7.5 Albumin 3.7 Globulin 3.7 Albumin/Globulin Ratio 1.0 Triglycerides Cholesterol LDL Cholesterol Direct HDL Cholesterol TSH 3rd Generation Urine Color Urine Clarity Urine pH Ur Specific [place] Urine Protein Urine Glucose (UA) Urine Ketones Urine Blood Urine Nitrate Urine Bilirubin Urine Urobilinogen Ur Leukocyte Esterase Urine WBC (Auto) Urine RBC (Auto) Ur Squamous Epith Cells 02/02/18 02/02/18 02/02/18 03:54 04:37 04:37 WBC RBC Hgb Hct MCV MCH MCHC RDW Plt Count MPV Neut % (Auto) Lymph % (Auto) [place] % (Auto) Eos % (Auto) Baso % (Auto) Neut # (Auto) Lymph # (Auto) [place] # (Auto) Eos # (Auto) Baso # (Auto) PT INR APTT Sodium Potassium Chloride Carbon Dioxide Anion Gap BUN Creatinine Est GFR ( Amer) Est GFR (Non-Af Amer) POC Glucose (mg/dL) Random Glucose Hemoglobin A1c 6.6 H Calcium Total Bilirubin AST ALT Alkaline Phosphatase Total Creatine Kinase 73 CK-MB (Mass) 0.55 Troponin I 0.0670 NT-Pro-B Natriuret Pep Total Protein Albumin Globulin Albumin/Globulin Ratio Triglycerides 317 H Cholesterol 175 LDL Cholesterol Direct 113 HDL Cholesterol 42 TSH 3rd Generation 0.85 Urine Color Yellow Urine Clarity Clear Urine pH 5.0 Ur Specific [place] 1.024 Urine Protein Negative Urine Glucose (UA) Normal Urine Ketones Negative Urine Blood Negative Urine Nitrate Negative Urine Bilirubin Negative Urine Urobilinogen Normal Ur Leukocyte Esterase Neg Urine WBC (Auto) 2 Urine RBC (Auto) 5 H Ur Squamous Epith Cells 3 02/02/18 02/02/18 02/02/18 06:36 11:05 16:20 WBC RBC Hgb Hct MCV MCH MCHC RDW Plt Count MPV Neut % (Auto) Lymph % (Auto) [place] % (Auto) Eos % (Auto) Baso % (Auto) Neut # (Auto) Lymph # (Auto) [place] # (Auto) Eos # (Auto) Baso # (Auto) PT INR APTT Sodium Potassium Chloride Carbon Dioxide Anion Gap BUN Creatinine Est GFR ( Amer) Est GFR (Non-Af Amer) POC Glucose (mg/dL) 115 H 106 106 Random Glucose Hemoglobin A1c Calcium Total Bilirubin AST ALT Alkaline Phosphatase Total Creatine Kinase CK-MB (Mass) Troponin I NT-Pro-B Natriuret Pep Total Protein Albumin Globulin Albumin/Globulin Ratio Triglycerides Cholesterol LDL Cholesterol Direct HDL Cholesterol TSH 3rd Generation Urine Color Urine Clarity Urine pH Ur Specific [place] Urine Protein Urine Glucose (UA) Urine Ketones Urine Blood Urine Nitrate Urine Bilirubin Urine Urobilinogen Ur Leukocyte Esterase Urine WBC (Auto) Urine RBC (Auto) Ur Squamous Epith Cells 02/02/18 02/02/18 02/02/18 16:36 16:36 21:38 WBC RBC Hgb Hct MCV MCH MCHC RDW Plt Count MPV Neut % (Auto) Lymph % (Auto) [place] % (Auto) Eos % (Auto) Baso % (Auto) Neut # (Auto) Lymph # (Auto) [place] # (Auto) Eos # (Auto) Baso # (Auto) PT 12.0 INR 1.1 APTT 33 Sodium Potassium Chloride Carbon Dioxide Anion Gap BUN Creatinine Est GFR ( Amer) Est GFR (Non-Af Amer) POC Glucose (mg/dL) 109 Random Glucose Hemoglobin A1c Calcium Total Bilirubin AST ALT Alkaline Phosphatase Total Creatine Kinase 108 CK-MB (Mass) 0.81 Troponin I 0.0450 NT-Pro-B Natriuret Pep Total Protein Albumin Globulin Albumin/Globulin Ratio Triglycerides Cholesterol LDL Cholesterol Direct HDL Cholesterol TSH 3rd Generation Urine Color Urine Clarity Urine pH Ur Specific [place] Urine Protein Urine Glucose (UA) Urine Ketones Urine Blood Urine Nitrate Urine Bilirubin Urine Urobilinogen Ur Leukocyte Esterase Urine WBC (Auto) Urine RBC (Auto) Ur Squamous Epith Cells Assessment & Plan - Assessment and Plan (Free Text) Assessment: Acute coronary syndrome T2dm HTN Plan: Cardiac cath in Am in view of +trops x 2, and strong cardiac risk factors. Cont meds - Date & Time Date: 02/02/18 Time: 08:30
[2018-02-03 07:08] LABS: BASO # 0.1 K/uL (0.0-0.2); BASO % 0.6 % (0.0-2.0); EOS # 0.6 K/uL (0.0-0.7); EOS % 5.1 % (0.0-4.0); HEMOGLOBIN 13.1 g/dL (11.0-16.0); LYMPH % 27.7 % (20.0-40.0); MEAN CELL VOLUME 86.8 fL (81.0-99.0); MEAN CORPUSCULAR HEMOGLOBIN 29.4 pg (27.0-31.0); MEAN CORPUSCULAR HGB CONC 33.9 g/dL (33.0-37.0); MEAN PLATELET VOLUME 7.5 fL (7.2-11.7); MONO # 0.7 K/uL (0.0-0.8); MONO % 6.1 % (0.0-10.0); NEUT # 6.6 K/uL (1.8-7.0); NEUT % 60.5 % (50.0-75.0); RBC 4.45 Mil/uL (3.80-5.20); RED CELL DISTRIBUTION WIDTH 14.2 % (11.5-14.5); WHITE BLOOD COUNT 10.9 K/uL (4.8-10.8)
[2018-02-03] MEDS: (Novolin R) Insulin Human Regular 100 units/ml vial SC SCH ×3 (07:30→16:00)
[2018-02-03 07:33] LABS: ALBUMIN 3.8 g/dL (3.5-5.0); ALT/SGPT 13 U/L (9-52); AST/SGOT 18 U/L (14-36); BLOOD UREA NITROGEN 12 mg/dL (7-17); CALCIUM 8.6 mg/dl (8.6-10.4); GFR AFRICAN-AMERICAN > 60; GFR NON-AFRICAN AMERICAN > 60
[2018-02-03] MEDS ORDERED: Midazolam 2 MG/2 ML VIAL ONE (07:53)
[2018-02-03] MEDS ORDERED: Iodixanol 320 MG/ML 200 ML BOTTLE IV ONE (07:57)
[2018-02-03] MEDS ORDERED: DiphenhydrAMINE 50 mg/ml Inj ONE (08:38)
[2018-02-03] MEDS ORDERED: Iodixanol 320 MG/ML 100 ML BOTTLE IV ONE (08:50)
[2018-02-03] MEDS: Enoxaparin 40 mg Syringe SC SCH (10:00)
--- NOTE | 2018-02-03 14:46 | CARDCATH ---
PROCEDURE DATE: 02/03/2018 INDICATION: ACS. ALARM TECHNICIAN: Blanka Jalloh MD PROCEDURES: Left heart cath, coronary arteriogram, left ventriculogram. DESCRIPTION OF PROCEDURE: After an informed consent, the patient was brought to the cardiac curb and gutter laborer and draped in the usual sterile fashion. Subsequently, the patient received subcutaneous lidocaine to the right femoral area for local anesthesia. The right femoral artery was accessed about the inguinal ligament using a Cook needle. Using Seldinger technique, a 6-inch [place] sheath was placed. Using preshaped catheters, angiograms were taken of the coronary arteries and left ventriculogram was done. RESULTS: CORONARY ARTERIOGRAM: The left main artery was free of any disease and bifurcated to LAD and left circumflex artery. The LAD coursed in normal fashion and revealed a 90% stenosis in the mid region. The left circumflex artery revealed a 99.9% stenosis in the proximal area. The right coronary artery is a dominant vessel and revealed an 85% stenosis in the proximal region and a 70% stenosis in the mid RCA. LEFT VENTRICULOGRAM: The LV gram showed normal LV wall motion. The ejection fraction is 70%. There was no gradient across the aortic valve. IMPRESSION: 1. Triple vessel disease. 2. Normal left ventricular systolic function. RECOMMENDATIONS: CABG. Blanka Jalloh MD
--- NOTE | 2018-02-03 15:41 | CP.PCM.DIS ---
Provider - Provider Date of Admission: 02/02/18 01:36 Attending physician: Abisai Clark MD Primary care physician: Dr. Gray Consults: Dr. Jalloh (cardiology) Time Spent in preparation of Discharge (in minutes): 45 Diagnosis - Discharge Diagnosis (1) Triple vessel coronary artery disease Status: Acute Comment: Patient being transferred to [facility] for CABG (2) Diabetes mellitus Status: Chronic (3) HTN (hypertension) Status: Chronic (4) HLD (hyperlipidemia) Status: Chronic Hospital Course - Lab Results Lab Results: Most Recent Lab Values WBC 10.9 K/uL (4.8-10.8) H 02/03/18 07:00 RBC 4.45 Mil/uL (3.80-5.20) 02/03/18 07:00 Hgb 13.1 g/dL (11.0-16.0) 02/03/18 07:00 Hct 38.7 % (34.0-47.0) 02/03/18 07:00 MCV 86.8 fL (81.0-99.0) 02/03/18 07:00 MCH 29.4 pg (27.0-31.0) 02/03/18 07:00 MCHC 33.9 g/dL (33.0-37.0) 02/03/18 07:00 RDW 14.2 % (11.5-14.5) 02/03/18 07:00 Plt Count 349 K/uL (130-400) 02/03/18 07:00 MPV 7.5 fL (7.2-11.7) 02/03/18 07:00 Neut % (Auto) 60.5 % (50.0-75.0) 02/03/18 07:00 Lymph % (Auto) 27.7 % (20.0-40.0) 02/03/18 07:00 [place] % (Auto) 6.1 % (0.0-10.0) 02/03/18 07:00 Eos % (Auto) 5.1 % (0.0-4.0) H 02/03/18 07:00 Baso % (Auto) 0.6 % (0.0-2.0) 02/03/18 07:00 Neut # (Auto) 6.6 K/uL (1.8-7.0) 02/03/18 07:00 Lymph # (Auto) 3.0 K/uL (1.0-4.3) 02/03/18 07:00 [place] # (Auto) 0.7 K/uL (0.0-0.8) 02/03/18 07:00 Eos # (Auto) 0.6 K/uL (0.0-0.7) 02/03/18 07:00 Baso # (Auto) 0.1 K/uL (0.0-0.2) 02/03/18 07:00 PT 12.0 SECONDS (9.7-12.2) 02/02/18 16:36 INR 1.1 02/02/18 16:36 APTT 33 SECONDS (21-34) 02/02/18 16:36 Sodium 141 mmol/L (132-148) 02/03/18 07:00 Potassium 4.0 mmol/L (3.6-5.2) 02/03/18 07:00 Chloride 106 mmol/L (98-107) 02/03/18 07:00 Carbon Dioxide 23 mmol/L (22-30) 02/03/18 07:00 Anion Gap 16 (10-20) 02/03/18 07:00 BUN 12 mg/dL (7-17) 02/03/18 07:00 Creatinine 0.6 mg/dL (0.7-1.2) L 02/03/18 07:00 Est GFR ( Amer) > 60 02/03/18 07:00 Est GFR (Non-Af Amer) > 60 02/03/18 07:00 POC Glucose (mg/dL) 96 mg/dL (65-110) 02/03/18 11:23 Random Glucose 109 mg/dL (65-105) H 02/03/18 07:00 Hemoglobin A1c 6.6 % (4.2-6.5) H 02/02/18 04:37 Calcium 8.6 mg/dl (8.6-10.4) 02/03/18 07:00 Phosphorus 3.8 mg/dL (2.5-4.5) 02/03/18 07:00 Magnesium 2.1 mg/dL (1.6-2.3) 02/03/18 07:00 Total Bilirubin 0.6 mg/dL (0.2-1.3) 02/03/18 07:00 AST 18 U/L (14-36) 02/03/18 07:00 ALT 13 U/L (9-52) 02/03/18 07:00 Alkaline Phosphatase 110 U/L (38-126) 02/03/18 07:00 Total Creatine Kinase 108 U/L (30-135) 02/02/18 16:36 CK-MB (Mass) 0.81 ng/mL (0.0-3.38) 02/02/18 16:36 Troponin I 0.0450 ng/mL (0.00-0.120) 02/02/18 16:36 NT-Pro-B Natriuret Pep 52.7 pg/mL (0-900) 02/02/18 00:40 Total Protein 7.6 g/dL (6.3-8.3) 02/03/18 07:00 Albumin 3.8 g/dL (3.5-5.0) 02/03/18 07:00 Globulin 3.8 gm/dL (2.2-3.9) 02/03/18 07:00 Albumin/Globulin Ratio 1.0 (1.0-2.1) 02/03/18 07:00 Triglycerides 317 mg/dL (0-149) H 02/02/18 04:37 Cholesterol 175 mg/dL (0-199) 02/02/18 04:37 LDL Cholesterol Direct 113 mg/dL (0-129) 02/02/18 04:37 HDL Cholesterol 42 mg/dL (30-70) 02/02/18 04:37 TSH 3rd Generation 0.85 mIU/L (0.46-4.68) 02/02/18 04:37 Urine Color Yellow (YELLOW) 02/02/18 03:54 Urine Clarity Clear (Clear) 02/02/18 03:54 Urine pH 5.0 (5.0-8.0) 02/02/18 03:54 Ur Specific [place] 1.024 (1.003-1.030) 02/02/18 03:54 Urine Protein Negative mg/dL (NEGATIVE) 02/02/18 03:54 Urine Glucose (UA) Normal mg/dL (Normal) 02/02/18 03:54 Urine Ketones Negative mg/dL (NEGATIVE) 02/02/18 03:54 Urine Blood Negative (NEGATIVE) 02/02/18 03:54 Urine Nitrate Negative (NEGATIVE) 02/02/18 03:54 Urine Bilirubin Negative (NEGATIVE) 02/02/18 03:54 Urine Urobilinogen Normal mg/dL (0.2-1.0) 02/02/18 03:54 Ur Leukocyte Esterase Neg Dong/uL (Negative) 02/02/18 03:54 Urine WBC (Auto) 2 /hpf (0-5) 02/02/18 03:54 Urine RBC (Auto) 5 /hpf (0-3) H 02/02/18 03:54 Ur Squamous Epith Cells 3 /hpf (0-5) 02/02/18 03:54 - Hospital Course Hospital Course: HPI: "This patient is a 67yo F w/ a PMhx of DM on glipizide, HTN, and HLD who is coming to the ED with chest pain since 10pm tonight. The patient was sitting watching TV when the chest pain started; She states the chest pain is centrally located, moving to both jaws and down her left arm associated with nausea and diaphoresis. Denies any vomiting or feelings of impending doom. She has never had chest pain like this before which is what prompted her to come into the hospital. She denies shortness of breath. She states she had a stress test 6 yeas ago which was normal, and saw a wet cleaner machine "many years ago" with reportedly normal results. She currently denies chest pain, after she was given nitro twice which alleviated her pain. She denies fevers/chills, SWANSON, CP, SOB, abdominal pain, N/V/D, dysuria/freq/urg or lower extremity pain/swelling" Patient was admitted to [facility] on 02/02/18 to rule out acute coronary syndrome. Patient's first Troponin was negative. Dr. Jlaloh cardiology was consulted and the following two Troponins were .0670, .0450. Echo done on showed normal LV systolic function, diastolic dysfunction, normal chamber size, trace MR, and mild TR. Dr. Jalloh took patient for cardiac cath on 02/03/18 and found severe triple vessel disease. Patient to be transferred to [facility] for CABG. While in the hospital patient's chronic conditions were managed. Patient's diabetes was managed with insulin sliding scale and accuchecks q6h. Patient's HgA1C was found to be 6.6. For patient's hyperlipidemia (Triglycerides 317, Cholesterol 175, LDL 113, HDL 42) Crestor 20mg was given daily. For patient's hypertension, Losartan 100mg po daily and HCTZ 25mg po daily were continued. Patient was given Aspirin 81mg po daily. Patient was given Colace 100mg po TID and prune juice for constipation. After cardiac cath while patient was awaiting transfer, she was feeling okay. She had no chest pain or groin pain from the cath. Patient was resting comfortably and trying to be optimistic about her transfer. Patient had no complaints. Discharge Exam - Head Exam Head Exam: NORMAL INSPECTION - Eye Exam Eye Exam: EOMI, Normal appearance - ENT Exam ENT Exam: Mucous Membranes Moist - Respiratory Exam Respiratory Exam: Clear to PA & Lateral, NORMAL BREATHING PATTERN, UNREMARKABLE. absent: Rales, Rhonchi, Wheezes, Respiratory Distress, Stridor - Cardiovascular Exam Cardiovascular Exam: REGULAR RHYTHM, RRR, +S1, +S2 - GI/Abdominal Exam GI & Abdominal Exam: Normal Bowel Sounds, Soft. absent: Distended, Firm, Guarding, Tenderness - Extremities Exam Extremities exam: normal inspection - Back Exam Back exam: NORMAL INSPECTION - Neurological Exam Neurological exam: Alert, Oriented x3 - Psychiatric Exam Psychiatric exam: Normal Affect, Normal Mood - Skin Skin Exam: Intact, Normal Color, Warm Additional comments: groin site from cardiac cath covered in c/d/i dressing, no pain to palpation, no ecchymosis/ hematoma Discharge Plan - Follow Up Plan Condition: FAIR Disposition: Trans to Other Acute Care Hosp
[2018-02-03 20:34] VITALS: BP 166/81; PULSE 86; RESP 20; TEMP 97.9; O2SAT 94
--- NOTE | 2018-02-03 21:51 | CARD ---
APPROVED REPORT EKG Measurement Heart [id number] [place] [id number] <Conclusion> Normal sinus rhythm Normal ECG
--- NOTE | 2018-02-03 21:59 | CARD ---
APPROVED REPORT EKG Measurement Heart [id number] [place] [id number] <Conclusion> Normal sinus rhythm Normal ECG
--- NOTE | 2018-02-03 22:03 | CARD ---
APPROVED REPORT EKG Measurement Heart [id number] [place] [id number] <Conclusion> Normal sinus rhythm Possible Left atrial enlargement Nonspecific ST and T wave abnormality Prolonged QT Abnormal ECG
== END 2018-02-03 16:51 | disposition short-term general hospital (02) ==
LOC: C.ER 23:53 → C.6T 02-02 01:36
PROVIDERS: ADMIT Internal Medicine; ATTEND Internal Medicine
DX: I25.110 Atherosclerotic heart disease of native coronary artery with unstable angina pectoris (principal); I24.9 Acute ischemic heart disease, unspecified; I10 Essential (primary) hypertension; E11.9 Type 2 diabetes mellitus without complications; D72.829 Elevated white blood cell count, unspecified; F17.210 Nicotine dependence, cigarettes, uncomplicated; E78.00 Pure hypercholesterolemia, unspecified; E78.5 Hyperlipidemia, unspecified; K59.00 Constipation, unspecified; Z79.84 Long term (current) use of oral hypoglycemic drugs; Z79.82 Long term (current) use of aspirin; Z86.010 Personal history of colon polyps; Z90.710 Acquired absence of both cervix and uterus; Z98.51 Tubal ligation status
CPT/HCPCS: 36415; 71045; 80053; 80061; 81001; 82948; 83036; 83735; 83880; 84100; 84443; 84484; 85025; 85610; 85730; 93005; 93306; 93452; 99152; 99153; 99285; C1760; C1769; C1887; C1893; G0378; J1200; J1644; J1650; J2250; J3010; Q9966; Q9967